=== PATIENT | male | born 1970 | race Caucasian/White ===

== ENCOUNTER 2023-01-22 12:35 | Inpatient (IN) | payer BC ==
[2023-01-22] MEDS ORDERED: Sodium Chloride 0.9% 10 ML Syringe FLUSH PRN (14:16)
[2023-01-22] MEDS ORDERED: Sodium Chloride 0.9% 1,000 ML IV ONE ×2 (14:17→16:02)
[2023-01-22] MEDS ORDERED: Ondansetron 4 MG/2 ML SDV IVPUSH ONE (14:23)
[2023-01-22 14:24] LABS: BASOPHILS ABSOLUTE AUTO 0.03 K/uL (0.00-0.10); BASOPHILS PERCENT AUTO 0.3 % (0.1-1.3); EOSINOPHILS ABSOLUTE AUTO 0.16 K/uL (0.00-0.40); EOSINOPHILS PERCENT AUTO 1.6 % (0.0-5.4); HEMATOCRIT 60.6 % (38.4-49.7); IMMATURE GRAN PERCENT AUTO 0.1 % (0.0-0.7); LYMPHOCYTES ABSOLUTE AUTO 1.08 K/uL (0.8-3.3); LYMPHOCYTES PERCENT AUTO 10.6 % (11.4-47.7); MEAN CORPUSCULAR HEMOGLOBIN 29.6 pg (31.6-35.5); MEAN CORPUSCULAR HGB CONC 33.8 g/dL (31.6-35.5); MEAN CORPUSCULAR VOLUME 87.4 fL (81.4-99.0); MONOCYTES ABSOLUTE AUTO 1.93 K/uL (0.20-0.90); NEUTROPHILS ABSOLUTE AUTO 6.95 K/uL (1.0-7.6); NEUTROPHILS PERCENT AUTO 68.4 % (40.0-78.1); PLATELET COUNT,PLT 464 K/uL (130-375); RED BLOOD CELL COUNT 6.93 M/uL (4.14-5.76); WHITE BLOOD CELL COUNT,WBC 10.2 K/uL (3.2-11.0)
[2023-01-22 14:36] LABS: HEMOGLOBIN 20.5 g/dL (12.9-16.9); IMMATURE GRAN ABSOLUTE AUTO 0.01 K/uL (0.00-0.23)
[2023-01-22 14:44] LABS: ALANINE AMINOTRANSFERASE,ALT 35 U/L (12-78); ALBUMIN 4.5 g/dL (3.4-5.0); ALKALINE PHOSPHATASE 111 U/L (46-116); ASPARTATE AMNIOTRANSFERASE,AST 15 U/L (15-37); BILIRUBIN TOTAL 1.3 mg/dL (0.2-1.0); BLOOD UREA NITROGEN,BUN 21 mg/dL (7-18); C-REACTIVE PROTEIN 5.53 mg/dL (0.0-0.3); CALCIUM 9.7 mg/dL (8.5-10.1); CARBON DIOXIDE,CO2 29 mmol/L (21-32); CHLORIDE,CL 99 mmol/L (100-108); EST CRCL DRUG DOSING (CG) 55.96 mL/min; ESTIMATED GFR 39 mL/min (>60); GLUCOSE RANDOM 120 mg/dL (74-106); SODIUM,NA 137 mmol/L (140-148)
[2023-01-22] MEDS ORDERED: Iopamidol 612 MG/ML 100 ML Bottle IV SCH (15:00)
[2023-01-22] MEDS ORDERED: Sodium Chloride 0.9% 50 ML IV SCH (15:00)
[2023-01-22] MEDS ORDERED: Lidocaine 2% Jelly 10 ML Urojet MUCMEM ONE (16:39)
[2023-01-22] MEDS ORDERED: LORazepam 2 MG/ML SDV IVPUSH ONE (16:45)
[2023-01-22] MEDS ORDERED: Acetaminophen 325 MG Tab PO PRN (19:48)
[2023-01-22] MEDS ORDERED: HYDROmorphone 1 MG/ML Syringe IVPUSH PRN (19:48)
[2023-01-22] MEDS: Sodium Chloride 0.9% 1,000 ML IV SCH (20:21)
[2023-01-22] MEDS: Pantoprazole 40 MG Vial IV SCH (20:22)
[2023-01-22] MEDS ORDERED: Ondansetron 4 MG Tab.DIS ONE (20:34)
[2023-01-22] MEDS ORDERED: Ondansetron 4 MG Tab.DIS PO PRN (23:00)
[2023-01-22] MEDS ORDERED: Ondansetron 4 MG/2 ML SDV IV PRN (23:00)
[2023-01-23 04:53] LABS: HEMATOCRIT 50.2 % (38.4-49.7); HEMOGLOBIN 17.1 g/dL (12.9-16.9); MEAN CORPUSCULAR HEMOGLOBIN 29.8 pg (31.6-35.5); MEAN CORPUSCULAR HGB CONC 34.1 g/dL (31.6-35.5); MEAN CORPUSCULAR VOLUME 87.5 fL (81.4-99.0); RED BLOOD CELL COUNT 5.74 M/uL (4.14-5.76); WHITE BLOOD CELL COUNT,WBC 6.4 K/uL (3.2-11.0)
[2023-01-23 05:08] LABS: CALCIUM 8.2 mg/dL (8.5-10.1); CREATININE 1.2 mg/dL (0.8-1.3); EST CRCL DRUG DOSING (CG) 65.79 mL/min; POTASSIUM,K 3.8 mmol/L (3.6-5.2)
[2023-01-23 05:10] LABS: ANION GAP 11.8 mmol/L (5.0-14.0)
[2023-01-23] MEDS: Sodium Chloride 0.9% 1,000 ML IV SCH (05:39)
[2023-01-23] MEDS ORDERED: HYDROmorphone 0.5 MG/0.5 ML Syringe IVPUSH PRN (07:03)
[2023-01-23] MEDS: Pantoprazole 40 MG Vial IV SCH (19:13)
[2023-01-23] MEDS ORDERED: Sodium Chloride 0.9% 1,000 ML IV ONE (19:58)
[2023-01-24] MEDS: Sodium Chloride 0.9% 1,000 ML IV SCH ×3 (00:05→19:14)
[2023-01-24 04:54] LABS: BASOPHILS PERCENT AUTO 0.4 % (0.1-1.3); EOSINOPHILS ABSOLUTE AUTO 0.07 K/uL (0.00-0.40); EOSINOPHILS PERCENT AUTO 1.5 % (0.0-5.4); HEMATOCRIT 47.1 % (38.4-49.7); HEMOGLOBIN 15.8 g/dL (12.9-16.9); IMMATURE GRAN PERCENT AUTO 0.2 % (0.0-0.7); LYMPHOCYTES ABSOLUTE AUTO 1.18 K/uL (0.8-3.3); LYMPHOCYTES PERCENT AUTO 24.6 % (11.4-47.7); MEAN CORPUSCULAR HEMOGLOBIN 29.5 pg (31.6-35.5); MEAN CORPUSCULAR HGB CONC 33.5 g/dL (31.6-35.5); MEAN CORPUSCULAR VOLUME 87.9 fL (81.4-99.0); MONOCYTES ABSOLUTE AUTO 1.21 K/uL (0.20-0.90); MONOCYTES PERCENT AUTO 25.3 % (3.3-12.6); PLATELET COUNT,PLT 323 K/uL (130-375); RED BLOOD CELL COUNT 5.36 M/uL (4.14-5.76); WHITE BLOOD CELL COUNT,WBC 4.8 K/uL (3.2-11.0)
[2023-01-24 05:11] LABS: BASOPHILS ABSOLUTE AUTO 0.02 K/uL (0.00-0.10); IMMATURE GRAN ABSOLUTE AUTO 0.01 K/uL (0.00-0.23)
[2023-01-24 05:13] LABS: ANION GAP 8.3 mmol/L (5.0-14.0); CALCIUM 8.4 mg/dL (8.5-10.1); CREATININE 1.1 mg/dL (0.8-1.3); EST CRCL DRUG DOSING (CG) 101.74 mL/min; MAGNESIUM 1.9 mg/dL (1.8-2.4); POTASSIUM,K 3.7 mmol/L (3.6-5.2)
[2023-01-24] MEDS: Enoxaparin 40 MG/0.4 ML Syringe SUBCUT SCH (11:33)
[2023-01-24] MEDS ORDERED: Sodium Chloride 0.9% 1,000 ML IV SCH ×2 (12:45)
[2023-01-24] MEDS ORDERED: Finasteride 5 MG Tab PO SCH (13:00)
[2023-01-24] MEDS ORDERED: Tamsulosin 0.4 MG Cap.ER PO SCH (21:00)
[2023-01-24] MEDS: Pantoprazole 40 MG Vial IV SCH (21:29)
[2023-01-25] MEDS: Sodium Chloride 0.9% 1,000 ML IV SCH ×3 (01:55→22:29)
[2023-01-25 04:48] LABS: HEMATOCRIT 43.6 % (38.4-49.7); HEMOGLOBIN 14.6 g/dL (12.9-16.9); MEAN CORPUSCULAR HEMOGLOBIN 29.4 pg (31.6-35.5); MEAN CORPUSCULAR HGB CONC 33.5 g/dL (31.6-35.5); MEAN CORPUSCULAR VOLUME 87.7 fL (81.4-99.0); RED BLOOD CELL COUNT 4.97 M/uL (4.14-5.76); WHITE BLOOD CELL COUNT,WBC 5.4 K/uL (3.2-11.0)
[2023-01-25 05:09] LABS: ANION GAP 12.2 mmol/L (5.0-14.0); CALCIUM 8.1 mg/dL (8.5-10.1); EST CRCL DRUG DOSING (CG) 112.28 mL/min; MAGNESIUM 1.7 mg/dL (1.8-2.4); PHOSPHORUS 2.8 mg/dL (2.5-4.9); POTASSIUM,K 3.6 mmol/L (3.6-5.2)
[2023-01-25] MEDS ORDERED: Magnesium Sulfate/Water 2 GM in Premix Bag 1 BAG IV ONE (08:00)
[2023-01-25] MEDS: Enoxaparin 40 MG/0.4 ML Syringe SUBCUT SCH (08:21)
[2023-01-25] MEDS ORDERED: Diatrizoate Meglumine/Diatrizoate Sodium 37% 120 ML Bottle PO SCH (12:30)
[2023-01-25] MEDS ORDERED: Diatrizoate Meglumine/Diatrizoate Sodium 37% 120 ML Bottle PO ONE (16:30)
[2023-01-25] MEDS: Pantoprazole 40 MG Vial IV SCH (19:34)
[2023-01-26] MEDS: Sodium Chloride 0.9% 1,000 ML IV SCH (05:06)
[2023-01-26 05:47] LABS: HEMATOCRIT 45.2 % (38.4-49.7); HEMOGLOBIN 15.5 g/dL (12.9-16.9); MEAN CORPUSCULAR HEMOGLOBIN 29.8 pg (31.6-35.5); MEAN CORPUSCULAR HGB CONC 34.3 g/dL (31.6-35.5); MEAN CORPUSCULAR VOLUME 86.9 fL (81.4-99.0); RED BLOOD CELL COUNT 5.2 M/uL (4.14-5.76); WHITE BLOOD CELL COUNT,WBC 7.5 K/uL (3.2-11.0)
[2023-01-26 06:06] LABS: CALCIUM 8.4 mg/dL (8.5-10.1); CREATININE 0.9 mg/dL (0.8-1.3); EST CRCL DRUG DOSING (CG) 124.76 mL/min; MAGNESIUM 1.8 mg/dL (1.8-2.4); PHOSPHORUS 2.8 mg/dL (2.5-4.9); POTASSIUM,K 3.8 mmol/L (3.6-5.2)
[2023-01-26 06:07] LABS: ANION GAP 16.8 mmol/L (5.0-14.0)
[2023-01-26] MEDS ORDERED: Dexamethasone 4 MG/ML SDV ONE (08:38)
[2023-01-26] MEDS ORDERED: Rocuronium 50 MG/5 ML Vial ONE ×3 (08:38→15:26)
[2023-01-26] MEDS ORDERED: Succinylcholine 200 MG/10 ML MDV ONE (08:38)
[2023-01-26] MEDS ORDERED: Ondansetron 4 MG/2 ML SDV ONE (08:38)
[2023-01-26] MEDS ORDERED: fentaNYL 250 MCG/5 ML SDV ONE ×3 (08:38→13:22)
[2023-01-26] MEDS ORDERED: Neostigmine Methylsulfate 1 MG/ML 5 ML Syringe ONE (08:38)
[2023-01-26] MEDS ORDERED: Glycopyrrolate 0.2 MG/ML 5 ML MDV ONE (08:38)
[2023-01-26] MEDS ORDERED: Propofol 200 MG/20 ML SDV ONE (08:38)
[2023-01-26] MEDS ORDERED: Bupivacaine 0.5% 50 ML MDV ONE (10:39)
[2023-01-26] MEDS ORDERED: Lidocaine 1% with EPINEPHrine 1:100,000 50 ML MDV ONE (10:39)
[2023-01-26] MEDS ORDERED: Bupivacaine 0.5%/EPINEPHrine 1:200,000 50 ML MDV ONE (10:39)
[2023-01-26] MEDS ORDERED: Meropenem 500 MG SDV ONE ×2 (10:39→11:49)
[2023-01-26] MEDS ORDERED: ceFAZolin 2 GM in Premix Bag 1 BAG IV ONE (11:00)
[2023-01-26] MEDS ORDERED: Lactated Ringers 1,000 ML ONE ×3 (11:38→16:25)
[2023-01-26] MEDS ORDERED: Sodium Chloride 0.9% 10 ML ONE (11:49)
[2023-01-26] MEDS ORDERED: Piperacillin/Tazobactam/Dext 3.375 GM in Premix Bag 1 BAG IV ONE (12:00)
[2023-01-26] MEDS ORDERED: Labetalol 20 MG/4 ML Syringe ONE (13:22)
[2023-01-26] MEDS ORDERED: fentaNYL 100 MCG/2 ML SDV ONE (16:03)
[2023-01-26] MEDS: HYDROmorphone/Normal Saline 6 MG/30 ML PCA Vial IV PRN (17:26)
[2023-01-26] MEDS: Acetaminophen 1,000 MG in Premix Bag 1 BAG IV SCH (17:26)
[2023-01-26 17:37] LABS: HEMATOCRIT 51.1 % (38.4-49.7); HEMOGLOBIN 17.6 g/dL (12.9-16.9); MEAN CORPUSCULAR HEMOGLOBIN 30.1 pg (31.6-35.5); MEAN CORPUSCULAR HGB CONC 34.4 g/dL (31.6-35.5); MEAN CORPUSCULAR VOLUME 87.5 fL (81.4-99.0); RED BLOOD CELL COUNT 5.84 M/uL (4.14-5.76); WHITE BLOOD CELL COUNT,WBC 17.2 K/uL (3.2-11.0)
[2023-01-26 17:54] LABS: INR 1.2; PROTHROMBIN TIME 12.3 sec (9.2-10.6)
[2023-01-26] MEDS: Dextrose 5%-Lactated Ringers 1,000 ML IV SCH ×2 (17:55→22:09)
[2023-01-26] MEDS: Piperacillin/Tazobactam/Dext 3.375 GM in Premix Bag 1 BAG IV SCH (17:56)
[2023-01-26 17:58] LABS: ALANINE AMINOTRANSFERASE,ALT 24 U/L (12-78); ALBUMIN 3.2 g/dL (3.4-5.0); ALKALINE PHOSPHATASE 81 U/L (46-116); ASPARTATE AMNIOTRANSFERASE,AST 30 U/L (15-37); BILIRUBIN TOTAL 3.1 mg/dL (0.2-1.0); BLOOD UREA NITROGEN,BUN 9 mg/dL (7-18); CALCIUM 8.4 mg/dL (8.5-10.1); CARBON DIOXIDE,CO2 20 mmol/L (21-32); CHLORIDE,CL 105 mmol/L (100-108); EST CRCL DRUG DOSING (CG) 112.28 mL/min; ESTIMATED GFR 89 mL/min (>60); GLUCOSE RANDOM 110 mg/dL (74-106); MAGNESIUM 1.6 mg/dL (1.8-2.4); PHOSPHORUS 4.9 mg/dL (2.5-4.9); POTASSIUM,K 4.9 mmol/L (3.6-5.2); PROTEIN TOTAL,TP 6.5 g/dL (6.4-8.2); SODIUM,NA 139 mmol/L (140-148)
[2023-01-26 17:59] LABS: ANION GAP 18.9 mmol/L (5.0-14.0)
[2023-01-26] MEDS ORDERED: Naloxone 0.4 MG/ML SDV IV PRN (18:00)
[2023-01-26] MEDS ORDERED: Magnesium Sulfate/Water 2 GM in Premix Bag 1 BAG IV ONE (18:57)
[2023-01-26] MEDS: Lactated Ringers 1,000 ML IV ONE (20:05)
[2023-01-26] MEDS: Pantoprazole 40 MG Vial IV SCH (22:11)
[2023-01-27] MEDS: Piperacillin/Tazobactam/Dext 3.375 GM in Premix Bag 1 BAG IV SCH ×4 (00:37→18:12)
[2023-01-27] MEDS: Acetaminophen 1,000 MG in Premix Bag 1 BAG IV SCH ×5 (04:44→17:53)
[2023-01-27 05:46] LABS: HEMATOCRIT 47.5 % (38.4-49.7); HEMOGLOBIN 16.4 g/dL (12.9-16.9); MEAN CORPUSCULAR HEMOGLOBIN 29.9 pg (31.6-35.5); MEAN CORPUSCULAR HGB CONC 34.5 g/dL (31.6-35.5); MEAN CORPUSCULAR VOLUME 86.5 fL (81.4-99.0); RED BLOOD CELL COUNT 5.49 M/uL (4.14-5.76); WHITE BLOOD CELL COUNT,WBC 14.9 K/uL (3.2-11.0)
[2023-01-27 06:22] LABS: ALANINE AMINOTRANSFERASE,ALT 23 U/L (12-78); ALBUMIN 2.8 g/dL (3.4-5.0); ALKALINE PHOSPHATASE 67 U/L (46-116); ASPARTATE AMNIOTRANSFERASE,AST 18 U/L (15-37); BLOOD UREA NITROGEN,BUN 6 mg/dL (7-18); CALCIUM 8.3 mg/dL (8.5-10.1); CARBON DIOXIDE,CO2 24 mmol/L (21-32); CHLORIDE,CL 103 mmol/L (100-108); EST CRCL DRUG DOSING (CG) 112.28 mL/min; ESTIMATED GFR 89 mL/min (>60); GLUCOSE RANDOM 181 mg/dL (74-106); PHOSPHORUS 3.3 mg/dL (2.5-4.9); POTASSIUM,K 4.2 mmol/L (3.6-5.2); PROTEIN TOTAL,TP 6.1 g/dL (6.4-8.2); SODIUM,NA 136 mmol/L (140-148)
[2023-01-27] MEDS: Lactated Ringers 1,000 ML IV ONE (06:22)
[2023-01-27 06:24] LABS: A/G RATIO 0.9 (1.2-2.2); ANION GAP 13.2 mmol/L (5.0-14.0)
[2023-01-27] MEDS: Dextrose 5%-Lactated Ringers 1,000 ML IV SCH ×2 (06:25→15:42)
[2023-01-27] MEDS: HYDROmorphone/Normal Saline 6 MG/30 ML PCA Vial IV PRN (07:35)
[2023-01-27 15:36] LABS: HEMATOCRIT 47.7 % (38.4-49.7); HEMOGLOBIN 16.4 g/dL (12.9-16.9); MEAN CORPUSCULAR HGB CONC 34.4 g/dL (31.6-35.5); MEAN CORPUSCULAR VOLUME 87.4 fL (81.4-99.0); RED BLOOD CELL COUNT 5.46 M/uL (4.14-5.76); WHITE BLOOD CELL COUNT,WBC 12.3 K/uL (3.2-11.0)
[2023-01-27 15:51] LABS: ANION GAP 10.2 mmol/L (5.0-14.0); CALCIUM 8.7 mg/dL (8.5-10.1); CREATININE 1.2 mg/dL (0.8-1.3); EST CRCL DRUG DOSING (CG) 93.57 mL/min; POTASSIUM,K 4.2 mmol/L (3.6-5.2)
[2023-01-27] MEDS ORDERED: Lactated Ringers 1,000 ML IV SCH (17:45)
[2023-01-27] MEDS: Enoxaparin 40 MG/0.4 ML Syringe SUBCUT SCH (17:57)
[2023-01-27] MEDS: Pantoprazole 40 MG Vial IV SCH (20:22)
[2023-01-28] MEDS: Piperacillin/Tazobactam/Dext 3.375 GM in Premix Bag 1 BAG IV SCH ×5 (01:23→23:41)
[2023-01-28] MEDS: Dextrose 5%-Lactated Ringers 1,000 ML IV SCH ×3 (01:24→19:17)
[2023-01-28] MEDS: HYDROmorphone/Normal Saline 6 MG/30 ML PCA Vial IV PRN ×2 (02:08→15:16)
[2023-01-28 04:57] LABS: HEMOGLOBIN 15.3 g/dL (12.9-16.9); MEAN CORPUSCULAR HEMOGLOBIN 30.2 pg (31.6-35.5); MEAN CORPUSCULAR HGB CONC 34.8 g/dL (31.6-35.5); MEAN CORPUSCULAR VOLUME 86.8 fL (81.4-99.0); RED BLOOD CELL COUNT 5.07 M/uL (4.14-5.76); WHITE BLOOD CELL COUNT,WBC 11.6 K/uL (3.2-11.0)
[2023-01-28 05:13] LABS: CALCIUM 8.5 mg/dL (8.5-10.1); CREATININE 0.9 mg/dL (0.8-1.3); EST CRCL DRUG DOSING (CG) 124.76 mL/min; MAGNESIUM 1.9 mg/dL (1.8-2.4); PHOSPHORUS 2.8 mg/dL (2.5-4.9); POTASSIUM,K 3.7 mmol/L (3.6-5.2)
[2023-01-28 05:33] LABS: ANION GAP 10.7 mmol/L (5.0-14.0)
[2023-01-28] MEDS: Azithromycin 125 MG in Sodium Chloride 0.9% 100 ML IV SCH ×2 (10:10→22:20)
[2023-01-28] MEDS ORDERED: LORazepam 2 MG/ML SDV IVPUSH PRN (10:22)
[2023-01-28] MEDS: Enoxaparin 40 MG/0.4 ML Syringe SUBCUT SCH (17:48)
[2023-01-28] MEDS: Pantoprazole 40 MG Vial IV SCH (19:21)
[2023-01-29] MEDS: Dextrose 5%-Lactated Ringers 1,000 ML IV SCH (04:50)
[2023-01-29 05:05] LABS: BASOPHILS ABSOLUTE AUTO 0.14 K/uL (0.00-0.10); BASOPHILS PERCENT AUTO 1.7 % (0.1-1.3); EOSINOPHILS ABSOLUTE AUTO 0.84 K/uL (0.00-0.40); EOSINOPHILS PERCENT AUTO 9.9 % (0.0-5.4); HEMATOCRIT 40.3 % (38.4-49.7); HEMOGLOBIN 13.6 g/dL (12.9-16.9); IMMATURE GRAN ABSOLUTE AUTO 0.07 K/uL (0.00-0.23); IMMATURE GRAN PERCENT AUTO 0.8 % (0.0-0.7); LYMPHOCYTES ABSOLUTE AUTO 1.22 K/uL (0.8-3.3); LYMPHOCYTES PERCENT AUTO 14.4 % (11.4-47.7); MEAN CORPUSCULAR HEMOGLOBIN 29.6 pg (31.6-35.5); MEAN CORPUSCULAR HGB CONC 33.7 g/dL (31.6-35.5); MEAN CORPUSCULAR VOLUME 87.8 fL (81.4-99.0); MONOCYTES ABSOLUTE AUTO 1.14 K/uL (0.20-0.90); MONOCYTES PERCENT AUTO 13.5 % (3.3-12.6); NEUTROPHILS ABSOLUTE AUTO 5.04 K/uL (1.0-7.6); NEUTROPHILS PERCENT AUTO 59.7 % (40.0-78.1); PLATELET COUNT,PLT 315 K/uL (130-375); RED BLOOD CELL COUNT 4.59 M/uL (4.14-5.76); WHITE BLOOD CELL COUNT,WBC 8.5 K/uL (3.2-11.0)
[2023-01-29] MEDS: Piperacillin/Tazobactam/Dext 3.375 GM in Premix Bag 1 BAG IV SCH ×2 (05:10→12:19)
[2023-01-29 05:29] LABS: A/G RATIO 0.6 (1.2-2.2); ALANINE AMINOTRANSFERASE,ALT 30 U/L (12-78); ALBUMIN 2.2 g/dL (3.4-5.0); ALKALINE PHOSPHATASE 62 U/L (46-116); ASPARTATE AMNIOTRANSFERASE,AST 20 U/L (15-37); BLOOD UREA NITROGEN,BUN 7 mg/dL (7-18); CALCIUM 8.6 mg/dL (8.5-10.1); CARBON DIOXIDE,CO2 34 mmol/L (21-32); CHLORIDE,CL 102 mmol/L (100-108); CREATININE 0.9 mg/dL (0.8-1.3); EST CRCL DRUG DOSING (CG) 124.76 mL/min; ESTIMATED GFR 101 mL/min (>60); GLUCOSE RANDOM 111 mg/dL (74-106); MAGNESIUM 1.8 mg/dL (1.8-2.4); PHOSPHORUS 2.6 mg/dL (2.5-4.9); POTASSIUM,K 3.6 mmol/L (3.6-5.2); PROTEIN TOTAL,TP 5.9 g/dL (6.4-8.2); SODIUM,NA 140 mmol/L (140-148)
[2023-01-29 05:56] LABS: ANION GAP 7.6 mmol/L (5.0-14.0)
[2023-01-29] MEDS: HYDROmorphone/Normal Saline 6 MG/30 ML PCA Vial IV PRN (08:16)
[2023-01-29] MEDS: Enoxaparin 40 MG/0.4 ML Syringe SUBCUT SCH (17:25)
[2023-01-29] MEDS: Pantoprazole 40 MG Vial IV SCH (20:34)
[2023-01-30] MEDS: HYDROmorphone/Normal Saline 6 MG/30 ML PCA Vial IV PRN ×2 (00:30→18:18)
[2023-01-30] MEDS: Dextrose 5%-Lactated Ringers 1,000 ML IV SCH ×3 (00:31→17:28)
[2023-01-30 04:42] LABS: BASOPHILS ABSOLUTE AUTO 0.16 K/uL (0.00-0.10); BASOPHILS PERCENT AUTO 2.3 % (0.1-1.3); EOSINOPHILS ABSOLUTE AUTO 1.12 K/uL (0.00-0.40); EOSINOPHILS PERCENT AUTO 16.2 % (0.0-5.4); HEMATOCRIT 37.9 % (38.4-49.7); HEMOGLOBIN 12.8 g/dL (12.9-16.9); IMMATURE GRAN ABSOLUTE AUTO 0.08 K/uL (0.00-0.23); IMMATURE GRAN PERCENT AUTO 1.2 % (0.0-0.7); LYMPHOCYTES ABSOLUTE AUTO 0.99 K/uL (0.8-3.3); LYMPHOCYTES PERCENT AUTO 14.3 % (11.4-47.7); MEAN CORPUSCULAR HEMOGLOBIN 29.6 pg (31.6-35.5); MEAN CORPUSCULAR HGB CONC 33.8 g/dL (31.6-35.5); MEAN CORPUSCULAR VOLUME 87.5 fL (81.4-99.0); MONOCYTES ABSOLUTE AUTO 0.85 K/uL (0.20-0.90); MONOCYTES PERCENT AUTO 12.3 % (3.3-12.6); NEUTROPHILS ABSOLUTE AUTO 3.72 K/uL (1.0-7.6); NEUTROPHILS PERCENT AUTO 53.7 % (40.0-78.1); PLATELET COUNT,PLT 316 K/uL (130-375); RED BLOOD CELL COUNT 4.33 M/uL (4.14-5.76); WHITE BLOOD CELL COUNT,WBC 6.9 K/uL (3.2-11.0)
[2023-01-30 04:59] LABS: A/G RATIO 0.6 (1.2-2.2); ALANINE AMINOTRANSFERASE,ALT 27 U/L (12-78); ALBUMIN 2.2 g/dL (3.4-5.0); ALKALINE PHOSPHATASE 65 U/L (46-116); ASPARTATE AMNIOTRANSFERASE,AST 18 U/L (15-37); BILIRUBIN TOTAL 1.6 mg/dL (0.2-1.0); BLOOD UREA NITROGEN,BUN 6 mg/dL (7-18); CALCIUM 8.4 mg/dL (8.5-10.1); CARBON DIOXIDE,CO2 30 mmol/L (21-32); CHLORIDE,CL 102 mmol/L (100-108); CREATININE 0.8 mg/dL (0.8-1.3); EST CRCL DRUG DOSING (CG) 140.36 mL/min; ESTIMATED GFR 105 mL/min (>60); GLUCOSE RANDOM 117 mg/dL (74-106); MAGNESIUM 1.6 mg/dL (1.8-2.4); PHOSPHORUS 3.5 mg/dL (2.5-4.9); POTASSIUM,K 3.2 mmol/L (3.6-5.2); PROTEIN TOTAL,TP 5.8 g/dL (6.4-8.2); SODIUM,NA 140 mmol/L (140-148)
[2023-01-30 05:18] LABS: ANION GAP 11.2 mmol/L (5.0-14.0)
[2023-01-30] MEDS ORDERED: Bisacodyl 10 MG Supp RECTAL PRN (07:36)
[2023-01-30] MEDS: Potassium Chloride 10 MEQ in Premix Bag 1 BAG IV SCH ×4 (08:08→12:53)
[2023-01-30] MEDS ORDERED: Magnesium Sulfate/Water 2 GM in Premix Bag 1 BAG IV ONE (12:00)
[2023-01-30] MEDS ORDERED: Lidocaine 2% Jelly 10 ML Urojet MUCMEM ONE (15:56)
[2023-01-30] MEDS: Enoxaparin 40 MG/0.4 ML Syringe SUBCUT SCH (17:28)
[2023-01-30] MEDS: Pantoprazole 40 MG Vial IV SCH (21:34)
[2023-01-31] MEDS: Dextrose 5%-Lactated Ringers 1,000 ML IV SCH ×2 (03:06→14:49)
[2023-01-31 06:01] LABS: HEMOGLOBIN 13.3 g/dL (12.9-16.9); MEAN CORPUSCULAR HEMOGLOBIN 29.9 pg (31.6-35.5); MEAN CORPUSCULAR HGB CONC 34.1 g/dL (31.6-35.5); MEAN CORPUSCULAR VOLUME 87.6 fL (81.4-99.0); RED BLOOD CELL COUNT 4.45 M/uL (4.14-5.76); WHITE BLOOD CELL COUNT,WBC 6.4 K/uL (3.2-11.0)
[2023-01-31 06:20] LABS: ANION GAP 10.5 mmol/L (5.0-14.0); CALCIUM 8.5 mg/dL (8.5-10.1); CREATININE 0.8 mg/dL (0.8-1.3); EST CRCL DRUG DOSING (CG) 140.36 mL/min; MAGNESIUM 1.9 mg/dL (1.8-2.4); PHOSPHORUS 3.5 mg/dL (2.5-4.9); POTASSIUM,K 3.5 mmol/L (3.6-5.2)
[2023-01-31] MEDS: Magnesium Hydroxide 400 MG/5 ML Susp 30 ML Cup PO SCH ×2 (08:31→15:00)
[2023-01-31] MEDS ORDERED: Bisacodyl 10 MG Supp RECTAL ONE (09:00)
[2023-01-31] MEDS: HYDROmorphone/Normal Saline 6 MG/30 ML PCA Vial IV PRN ×2 (10:19→23:27)
[2023-01-31] MEDS: Enoxaparin 40 MG/0.4 ML Syringe SUBCUT SCH (17:12)
[2023-01-31] MEDS: Pantoprazole 40 MG Vial IV SCH (21:41)
[2023-01-31] MEDS: Acetaminophen 325 MG Tab PO SCH (23:13)
[2023-01-31] MEDS: Ketorolac 15 MG/ML SDV IVPUSH SCH (23:14)
[2023-02-01 04:42] LABS: HEMATOCRIT 35.8 % (38.4-49.7); HEMOGLOBIN 12.1 g/dL (12.9-16.9); MEAN CORPUSCULAR HEMOGLOBIN 29.7 pg (31.6-35.5); MEAN CORPUSCULAR HGB CONC 33.8 g/dL (31.6-35.5); RED BLOOD CELL COUNT 4.07 M/uL (4.14-5.76); WHITE BLOOD CELL COUNT,WBC 4.8 K/uL (3.2-11.0)
[2023-02-01] MEDS: Dextrose 5%-Lactated Ringers 1,000 ML IV SCH (04:55)
[2023-02-01] MEDS: Ketorolac 15 MG/ML SDV IVPUSH SCH ×4 (04:56→21:44)
[2023-02-01 05:01] LABS: CALCIUM 8.3 mg/dL (8.5-10.1); CREATININE 0.9 mg/dL (0.8-1.3); EST CRCL DRUG DOSING (CG) 124.76 mL/min; PHOSPHORUS 3.8 mg/dL (2.5-4.9); POTASSIUM,K 3.5 mmol/L (3.6-5.2)
[2023-02-01 05:09] LABS: ANION GAP 8.5 mmol/L (5.0-14.0)
[2023-02-01] MEDS: Acetaminophen 325 MG Tab PO SCH (06:14)
[2023-02-01] MEDS: Potassium Chloride 10 MEQ in Premix Bag 1 BAG IV SCH ×2 (08:20→09:32)
[2023-02-01] MEDS ORDERED: oxyCODONE 5 MG Tab PO PRN (09:07)
[2023-02-01] MEDS ORDERED: HYDROmorphone 0.5 MG/0.5 ML Syringe IVPUSH PRN (09:08)
[2023-02-01] MEDS ORDERED: Naloxone 0.4 MG/ML SDV IVPUSH PRN (09:08)
[2023-02-01] MEDS: Acetaminophen 500 MG Tab PO SCH ×2 (14:14→21:43)
[2023-02-01] MEDS: Pantoprazole 40 MG Tab.CR PO SCH (14:15)
[2023-02-01] MEDS: Enoxaparin 40 MG/0.4 ML Syringe SUBCUT SCH (18:05)
[2023-02-02] MEDS: Ketorolac 15 MG/ML SDV IVPUSH SCH (04:49)
[2023-02-02 04:53] LABS: HEMOGLOBIN 12.1 g/dL (12.9-16.9); MEAN CORPUSCULAR HGB CONC 34.6 g/dL (31.6-35.5); MEAN CORPUSCULAR VOLUME 86.6 fL (81.4-99.0); RED BLOOD CELL COUNT 4.04 M/uL (4.14-5.76); WHITE BLOOD CELL COUNT,WBC 5.3 K/uL (3.2-11.0)
[2023-02-02 05:08] LABS: CALCIUM 8.3 mg/dL (8.5-10.1); CREATININE 0.8 mg/dL (0.8-1.3); EST CRCL DRUG DOSING (CG) 140.36 mL/min; MAGNESIUM 2.1 mg/dL (1.8-2.4); PHOSPHORUS 2.5 mg/dL (2.5-4.9); POTASSIUM,K 3.8 mmol/L (3.6-5.2)
[2023-02-02 05:16] LABS: ANION GAP 11.8 mmol/L (5.0-14.0)
[2023-02-02] MEDS: Acetaminophen 500 MG Tab PO SCH ×3 (05:50→21:32)
[2023-02-02] MEDS: Dextrose 5%-Lactated Ringers 1,000 ML IV SCH ×2 (05:52→18:18)
[2023-02-02] MEDS: Pantoprazole 40 MG Tab.CR PO SCH (07:49)
[2023-02-02] MEDS: Enoxaparin 40 MG/0.4 ML Syringe SUBCUT SCH (17:26)
[2023-02-03 05:38] LABS: MEAN CORPUSCULAR HEMOGLOBIN 29.9 pg (31.6-35.5); MEAN CORPUSCULAR HGB CONC 34.3 g/dL (31.6-35.5); MEAN CORPUSCULAR VOLUME 87.1 fL (81.4-99.0); RED BLOOD CELL COUNT 4.02 M/uL (4.14-5.76); WHITE BLOOD CELL COUNT,WBC 4.7 K/uL (3.2-11.0)
[2023-02-03 06:05] LABS: ANION GAP 10.7 mmol/L (5.0-14.0); CALCIUM 8.4 mg/dL (8.5-10.1); CREATININE 0.8 mg/dL (0.8-1.3); EST CRCL DRUG DOSING (CG) 139.9 mL/min; MAGNESIUM 1.9 mg/dL (1.8-2.4); PHOSPHORUS 2.6 mg/dL (2.5-4.9); POTASSIUM,K 3.7 mmol/L (3.6-5.2)
[2023-02-03] MEDS: Acetaminophen 500 MG Tab PO SCH ×2 (06:21→13:19)
[2023-02-03] MEDS: Pantoprazole 40 MG Tab.CR PO SCH (07:26)
[2023-02-03] MEDS ORDERED: Calcium Carbonate 500 MG Tab.Chew PO ONE (15:31)
[2023-02-04] MEDS ORDERED: OMEPRAZOLE 20MG **PTOM PO SCH (07:30)
== END 2023-02-03 17:30 | disposition home or self-care (01) | DRG 221 ==
LOC: JP.ED 12:35 → JP.MS 17:35 → OBSVTOIN 01-25 14:56 → JP.ICU 01-26 17:28 → JP.MS 01-28 08:00
PROVIDERS: ADMIT Internal Medicine; ATTEND Hospitalist
PROC: 0DT80ZZ Resection of Small Intestine, Open Approach (ICD-10-PCS; principal; 2023-01-26)
PROC: 0DN80ZZ Release Small Intestine, Open Approach (ICD-10-PCS; 2023-01-26)
PROC: 0DNU0ZZ Release Omentum, Open Approach (ICD-10-PCS; 2023-01-26)
DX: K56.600 Partial intestinal obstruction, unspecified as to cause (principal); G47.30 Sleep apnea, unspecified; F17.210 Nicotine dependence, cigarettes, uncomplicated; K66.0 Peritoneal adhesions (postprocedural) (postinfection); K21.9 Gastro-esophageal reflux disease without esophagitis; K91.71 Accidental puncture and laceration of a digestive system organ or structure during a digestive system procedure; Y83.8 Other surgical procedures as the cause of abnormal reaction of the patient, or of later complication, without mention of misadventure at the time of the procedure; Z79.899 Other long term (current) drug therapy; Z98.890 Other specified postprocedural states
CPT/HCPCS: 36415; 71045; 71045-26; 74018; 74018-26; 74019; 74019-26; 74176; 74176-26; 74177; 80048; 80053; 83605; 83735; 84100; 85025; 85027; 85610; 86140; 88307; 93005; 93010; 96361; 96365; 96366; 96372; 96374; 96375; 96376; 97116-GP; 97162-GP; 97530-GP; 99222; 99232; 99284; 99285-25; A9270-GY; C9113; G0378; J0131; J0330; J0456; J0690; J1100; J1170; J1650; J1885; J2020; J2185; J2405; J2543; J2704; J2710; J3010; J3360; J3475; J3480; J3490; J7030; J7120; J7121; Q0162; Q9967; U0002